=== PATIENT | male | born 1985 | race Two or more races ===

== ENCOUNTER 2021-09-12 20:41 | Emergency (ER) | payer OTHER | END 2021-09-12 23:44 | disposition left against medical advice (07) | LOC: ER 20:41 | DX: Z53.21 Procedure and treatment not carried out due to patient leaving prior to being seen by health care provider (principal) ==

== ENCOUNTER 2021-09-13 15:06 | Emergency (ER) | payer OTHER ==
[2021-09-13] MEDS ORDERED: METHYLENE BLUE 50 MG/10 ML AMP IV ONE (16:31)
== END 2021-09-13 17:12 | disposition left against medical advice (07) ==
LOC: ER 15:06
DX: Z53.21 Procedure and treatment not carried out due to patient leaving prior to being seen by health care provider (principal)
CPT/HCPCS: Q9968

== ENCOUNTER 2022-08-07 00:49 | Emergency (ER) | payer OTHER ==
[~2022-08-07] VITALS: Ht 180.3 cm; Wt 88.8 kg
[2022-08-07 01:01] VITALS: BP 131/86
== END 2022-08-07 03:33 | disposition left against medical advice (07) ==
LOC: ER 00:49
DX: Z53.21 Procedure and treatment not carried out due to patient leaving prior to being seen by health care provider (principal); R06.02 Shortness of breath; R00.0 Tachycardia, unspecified
CPT/HCPCS: 93005